=== PATIENT | male | born 1955 | race Caucasian/White ===

== ENCOUNTER 2016-09-05 22:18 | Emergency (ER) | payer OTHER | END 2016-09-05 22:34 | disposition home or self-care (01) | LOC: ER 22:18 | DX: I21.09 ST elevation (STEMI) myocardial infarction involving other coronary artery of anterior wall (principal); I21.19 ST elevation (STEMI) myocardial infarction involving other coronary artery of inferior wall; R57.0 Cardiogenic shock; I95.9 Hypotension, unspecified; E11.9 Type 2 diabetes mellitus without complications | CPT/HCPCS: 36415; 96374 ==